=== PATIENT | female | born 1980 | race Caucasian/White ===

== ENCOUNTER 2020-10-16 09:28 | Outpatient (CLI) | payer OTHER, SELFPAY ==
--- NOTE | ~2020-10-16 | MM_ITS ---
EXAMINATION: MM screening pool BI w julita HISTORY: Screening mammogram TECHNIQUE: Craniocaudal and mediolateral oblique 3-D tomosynthesis images were obtained and synthetic 2-D images were generated. CAD analysis was submitted and interpreted. COMPARISON: No prior mammogram is available for comparison at this institution. BREAST PARENCHYMAL COMPOSITION: There are scattered areas of fibroglandular density. FINDINGS: There is no evidence of suspicious mass, calcification, or architectural distortion to sugg est malignancy in either breast. There has been no suspicious interval change. IMPRESSION: 1. No mammographic evidence of malignancy. 2. Recommend routine screening mammography in one year. BI-RADS Category 1: Negative Reviewed, dictated and finalized at location A.
== END 2020-10-16 09:29 | disposition home or self-care (01) ==
LOC: ANHIMG 09:31
PROVIDERS: PCP Internal Medicine Gastroenterology; Visit Provider Student in an Organized Health Care Education/Training Program
DX: Z12.31 Encounter for screening mammogram for malignant neoplasm of breast (principal)
CPT/HCPCS: 77063; 77067

== ENCOUNTER 2020-11-12 13:09 | Emergency (ER) | payer OTHER, SELFPAY ==
--- NOTE | ~2020-11-12 | CT_ITS ---
EXAMINATION: CT cervical spine wo con EXAM DATE: 11/12/2020 15:22 INDICATION: Fall, neck pain. Initial encounter. TECHNIQUE: Spiral CT of the cervical spine was performed without contrast. Axial images were reviewe d. Coronal and sagittal reformatted images cervical spine were also reviewed. The dose-length produc t (DLP) for this examination was 440.88 mGy-cm. The exposure was tailored according to patient size (auto mA exposure control), and iterative reconstruction (ASIR) was used as additional dose reduction technique. There is no prior study for comparison. FINDINGS: There is no evidence of acute cervical fracture. The odontoid process is intact. Pre-dens space is normal. Prevertebral soft tissue is normal. There are no soft tissue abnormalities identi fied. There is no disc space widening or traumatic vertebral body subluxation suspected. Vertebral body and disc heights are well-maintained. Mild cervical arthropathy. IMPRESSION: 1. No acute cervical fracture. Reviewed, dictated and finalized at location A.
--- NOTE | ~2020-11-12 | CT_ITS ---
EXAMINATION: CT thoracic spine wo con EXAM DATE: 11/12/2020 15:22 INDICATION: Fall, back pain after injury. Initial encounter. TECHNIQUE: Spiral CT thoracic spine wo con was performed without contrast. Axial, coronal and sagit ricardo images were reviewed. The dose-length product (DLP) for this examination was 1562.89 mGy-cm. Th e exposure was tailored according to patient size (auto mA exposure control), and iterative reconstru ction (ASIR) was used as additional dose reduction technique. There is no prior study for comparison . FINDINGS: There are no acute fractures identified. The vertebral bodies are aligned in the AP dimensi on. Vertebral body and disc heights are well-maintained. Some tiny thoracic endplate osteophytes and small lower thoracic Schmorl's nodes. The central canal and neural foramen appear widely patent. Ther e is mild thoracic facet arthropathy. Paraspinal soft tissue is unremarkable. IMPRESSION: No thoracic acute findings. Reviewed, dictated and finalized at location A. IMPRESSION: No thoracic acute findings.
[2020-11-12 13:11] VITALS: BP 145/77; PULSE 83; RESP 14; TEMP 36.6; O2SAT 99
--- NOTE | 2020-11-12 13:36 | ED.FALL ---
HPI - Fall General Chief Complaint: Fall Stated Complaint: fell out of hammock Time Seen by Provider: 11/12/20 13:36 History of Present Illness HPI Narrative: 40 yo female presents from home after a fall. her hammock flipped and she fell out onto her head. The impact cause her head to snap to the side. No LOC, dazed for a few moments. She has moderate to severe pain in the left side of the neck radiating to the shoulder. No numbness, weakness. Related Data Allergies Allergy/AdvReac Type Severity Reaction Status Date / Time No Known Allergies Allergy Mild Verified 11/12/20 13:23 Review of Systems Review of Systems: All systems reviewed & are unremarkable except as noted in HPI and below ENT: Denies dizziness Cardiovascular: Cardiovascular: Denies chest pain Respiratory: Respiratory: Denies dyspnea Gastrointestinal: Gastrointestinal: Denies abdominal pain Genitourinary: Genitourinary: Reports no additional female genitourinary complaints Neurologic: Reports as per [facility] Social History Social History (Updated 11/18/20 @ 16:05 by Trey Dave MD) Smoking status: Never smoker Exam Const: General: healthy appearing, no acute distress and alert Orientation/consciousness: patient oriented x3 HENMT: Head: normal to inspection, no hematomas and no lacerations Ears: external ears normal, TM's normal bilaterally and EAC's normal Face and sinus: normal facial exam Eyes: Pupils: Equal, round and reactive pupils present EOM: EOMs intact bilaterally Neck: Neck: normal visual inspection Resp: Effort & Inspection: normal respiratory effort Auscultation: clear to auscultation bilaterally Cardio: Rate: regular rate Rhythm: regular rhythm Back/Spine/Pelvis: Cervical Spine: cervical spasm and Cervical spine tenderness Thoracic/Lumbar Spine: thoracic and lumbar spine normal to inspection Course Vital Signs Vital signs: Vital Signs Temperature 36.6 C 11/12/20 13:11 Pulse Rate 83 11/12/20 13:11 Respiratory Rate 14 11/12/20 13:11 Blood Pressure 145/77 H 11/12/20 13:11 Pulse Oximetry 99 11/12/20 13:11 Temperature 36.6 C 11/12/20 13:11 Pulse Rate 72 11/12/20 15:50 Respiratory Rate 18 11/12/20 15:50 Blood Pressure 128/76 11/12/20 15:50 Pulse Oximetry 99 11/12/20 15:50 MDM - Fall Lab Data Labs: UCG Bedside Result Negative Reference Range: Negative Imaging Data Radiologist's impression: ITS Impressions Cervical Spine CT 11/12/20 15:29 IMPRESSION: 1. No acute cervical fracture. Thoracic Spine CT 11/12/20 15:30 IMPRESSION: No thoracic acute findings. Discharge Plan Discharge Clinical Impression: Cervical muscle strain Patient Disposition: Home, Self-Care Condition: Stable Instructions: Cervical Strain (ED) Prescriptions: New cyclobenzaprine 10 mg tablet 10 mg PO TID PRN (Reason: muscle spasm) Qty: 20 RF: 0 Follow-up/Referrals: Robinson,Jermaine Amezquita MD [Primary Care Provider] -
[2020-11-12] MEDS: KETOROLAC (*BKC) 60 MG/2 ML VIAL IM (14:02)
[2020-11-12] MEDS: diazePAM INJ (*CRX) 10 MG/2 ML SYRINGE 5 MG IM (14:02)
[2020-11-12 15:50] VITALS: BP 128/76; PULSE 72; RESP 18; O2SAT 99
== END 2020-11-12 15:55 | disposition home or self-care (01) ==
PROVIDERS: Emergency Provider Emergency Medicine; PCP Internal Medicine Gastroenterology
DX: S16.1XXA Strain of muscle, fascia and tendon at neck level, initial encounter (principal); W17.89XA Other fall from one level to another, initial encounter
CPT/HCPCS: 72125; 72128; 81025; 96372; 99284; J1885; J3360

== ENCOUNTER 2021-11-12 09:40 | Outpatient (CLI) | payer OTHER, SELFPAY ==
--- NOTE | ~2021-11-12 | MM_ITS ---
EXAMINATION: MM screening pool BI w julita HISTORY: Screening TECHNIQUE: Craniocaudal and mediolateral oblique 3-D tomosynthesis images were obtained and synthetic 2-D images were generated. CAD analysis was submitted and interpreted. COMPARISON: 10/16/2020 BREAST PARENCHYMAL COMPOSITION: There are scattered areas of fibroglandular density. FINDINGS: There is no evidence of suspicious mass, calcification, or architectural distortion to sugg est malignancy in either breast. There has been no suspicious interval change. IMPRESSION: 1. No mammographic evidence of malignancy. 2. Recommend routine screening mammography in one year. BI-RADS Category 1: Negative Reviewed, dictated and finalized at location L.
== END 2021-11-12 09:41 | disposition home or self-care (01) ==
LOC: ANHIMG 09:42
PROVIDERS: PCP Internal Medicine Gastroenterology; Visit Provider Student in an Organized Health Care Education/Training Program
DX: Z12.31 Encounter for screening mammogram for malignant neoplasm of breast (principal)
CPT/HCPCS: 77063; 77067